=== PATIENT | female | born 1955 | race Caucasian/White ===

== ENCOUNTER 2016-12-07 23:18 | Emergency (ER) | payer MEDICARE, MEDICAID ==
[~2016-12-07] VITALS: Ht 177.8 cm; Wt 95.0 kg
[~2016-12-07 23:18] MED LIST: CALC-721 PO; CYCL10TA9 PO; EPIN0.3P2 IJ; GABA800T2 PO; HYDR12.55 PO; PANT40TA2 PO; PROP20TA5 PO; TRAM50TA2 PO; protandim PO
[2016-12-07 23:27] VITALS: BP 156/97; PULSE 114; RESP 18; O2SAT 98
--- NOTE | 2016-12-08 00:29 | ED.REPORT ---
HPI-General Illness Date of Service Dec 08, 2016 ED Provider: Ethan Vallejo MD Patient is a 61 year old female with a history of hypertension, fibromyalgia, breast cancer s/p bilateral mastectomy, and prior bladder suspension who presents to the ED complaining of urinary incontinence that began earlier this evening. The patient states that she currently has no control over her bladder and she had to change her clothing several times. For several months she has experienced abdominal pain with urination. The patient states that whenever she has to urinate she feels as if "everything is going to fall out". However, she has not actually noticed anything fall out of her body. Patient has a history of prior UTIs. The patient also has a burn to her right wrist, which she sustained while baking donuts yesterday. Patient reports associated redness and pain of her burn. Nursing Notes Stated Complaint: INCONTINENCE, RT HAND BURN Chief Complaint: General Complaint Nursing Notes Reviewed: Yes Allergies: Coded Allergies: Sulfa (Sulfonamide Antibiotics) (Verified Allergy, Unknown, 06/29/14) Penicillins (Verified Adverse Reaction, Mild, MAKES EARS INFLAMMED, ) hydromorphone HCl (Verified Adverse Reaction, Mild, ITCH, 03/31/13) oxycodone HCl (Verified Adverse Reaction, Mild, ITCH, 07/05/12) Scheduled ([protandim]) 1 TAB PO DAILY Calcium Carbonate/Vitamin D3 (Calcium 500 + D Tablet) 1 Each Tablet 2 EACH PO DAILY Epinephrine (Epipen 2-Cleve) 0.3 Mg/0.3 Ml Auto.injct 0.3 MG IJ ONCE Gabapentin (Gabapentin) 800 Mg Tablet 1,200 MG PO TID Hydrochlorothiazide (Hydrochlorothiazide) 12.5 Mg Tablet 12.5 MG PO DAILY Pantoprazole DR (Protonix) 40 Mg Tablet 40 MG PO DAILY Propranolol HCl (Propranolol HCl) 20 Mg Tablet 20 MG PO TID Scheduled PRN Cyclobenzaprine (Cyclobenzaprine) 10 Mg Tablet 10 MG PO HS PRN PRN For Pain Tramadol (Tramadol) 50 Mg Tablet 50-100 MG PO HS PRN PRN For Pain General Time Seen by MD: 00:25 Chief Complaint Other (burn right hand, UTI symptoms) Hx Obtained From: Patient Arrived By: Walk-in Sudden in Onset?: No Onset Occurred: 1 - 4 hours ago Symptom Duration: Since onset Location: : Abdomen Quality: Painful Severity: Current: Mild Severity: Maximum: Moderate Recent Healthcare: No recent doctor visit, No recent hospitalization Similar Sx Previous: Yes Past Medical History Past Medical History Pituitary adenoma Fibro myalgia Hypertension breast cancer s/p bilateral mastectomy UTIs Past Surgical History bilateral mastectomy bladder suspension Reports: Hysterectomy Smoking History Never Smoker Ambulatory Status Independent Review of Systems Full Review of Systems GI: Reports: Abdominal pain, Denies: Vomiting Female: Reports: Incontinence, Urinary urgency Musculoskeletal: Reports: Extremity pain, Denies: Extremity swelling Complete sys rev & neg: except as marked. Physical Exam Vital Signs Vital Signs Date Time Temp Pulse Resp B/P Pulse Ox O2 Delivery O2 Flow Rate FiO2 12/07/16 23:27 36.4 114 18 156/97 98 Room Air Initial VS: Reviewed, Vital signs abnormal Skin: Warm, Dry, No cyanosis Neurologic: Alert, Oriented, Nonfocal Psychiatric: Mood/affect normal, Behavior normal, Normal thought content General/Constitutional: Awake, Alert, No acute distress Head / Eyes: Atraumatic, Normocephalic, PERRL ENT: Airway patent, Mucous membranes moist Neck: Supple, Full range of motion Respiratory / Chest: Breath sounds NL, Breath sounds = bilat, No respiratory distress, No rales, No rhonchi, No wheezing Cardiovascular: Heart rate NL, Regular rhythm, Heart sounds NL, No murmurs Abdomen: Soft, No guarding, No rebound Tenderness/Guarding/Rebound: Positive: Tender suprapubic Back: No midline vertebral tend, No CVA tenderness Upper Extremities Upper Extremity / MS: Neurologic intact, Vascular intact Wrist / Hand: Neurologic intact, Vascular intact patterned burn diagonally to the right volar wrist central blistering and with surrounding erythema in a linear rectangular pattern Lower Extremity / Pelvis / MS: Neurologic intact, Vascular intact Interpretation & Diagnostics Lab Results Interpretation Test 12/08/16 00:40 Urine Color Yellow (YELLOW) Urine Appearance Clear (CLEAR,HAZY) Urine pH 5.5 (5.0-8.0) Urine Specific [place] 1.030 (1.003-1.035) Urine Protein Negativemg/dL (NEG,TRACE) Urine Glucose (UA) Negativemg/dL (NEGATIVE) Urine Ketones Negativemg/dL (NEGATIVE) Urine Occult Blood Negative (NEGATIVE) Urine Nitrite Negative (NEGATIVE) Urine Bilirubin Negative (NEGATIVE) Urine Urobilinogen Normalmg/dL (NORMAL) Urine Leukocyte Esterase Small (NEGATIVE) Urine RBC 3-10/hpf (0-2) Urine WBC 11-50/hpf (0-5) Urine Epithelial Cells Many/hpf (NONE-MOD) Urine Crystals None seen (NONE SEEN) Urine Bacteria Few/hpf (NONE-FEW) Urine Hyaline Casts None/lpf (NONE) Urine Granular Casts None seen (NONE SEEN) Urine Waxy Casts None seen (NONE SEEN) Urine Red Blood Cell Casts None seen (NONE SEEN) Urine White Blood Cell Casts None seen (NONE SEEN) Urine Mucus Present (None Seen) Urine Trichomonas None seen (NONE SEEN) Urine Yeast None (NONE SEEN) Urinalysis Comment None Urine Culture Reflexed Indicated Lab Results Interpretation: Elevated wbc per hpf, culture pending. Re-Eval/Medical Decision Med Decision/Clinical Course 61-year-old female with urinary tract infection symptoms and new onset incontinence is found to have urinary tract infection. She will be treated with Macrobid and phenazopyridine. She will follow-up with her primary doctor. She also had a small second degree burn of the right volar wrist which was dressed. Source of Hx: Old records Time of Eval: 00:59 Re-Evaluation/Progress Note: Patient's burn was dressed. She was informed that she has a UTI. Patient understands and agrees with the plan to be discharged home. Discharge instructions and follow-up discussed. All questions were addressed. Return to the ED warnings given. Counseled Regarding: Diagnosis, Lab results, Need for follow-up, When/why to return to ED Discharge & Departure Primary Impression: UTI (urinary tract infection) Urinary tract infection type: acute cystitis Hematuria presence: without hematuria Qualified Code: N30.00 - Acute cystitis without hematuria Additional Impression: Burn of right wrist Encounter type: initial encounter Burn degree: second degree Qualified Code : T23.271A - Burn of second degree of right wrist, initial encounter Disposition: Home Discharge Condition All VS Reviewed: Yes Condition: Stable Patient Instructions: Partial Thickness Burn (ED), Urinary Tract Infection in Women (ED) Additional Instructions: Macrobid (nitrofurantoin) 100 mg by mouth twice a day for 10 days, #20 dispensed. Phenazopyridine (Azo or Uristat) 95 mg, 2 tablets 3 times a day as needed for bladder symptoms or painful urination. Your urine culture is pending. We will contact you if this is not an appropriate antibiotic. See regular doctor if you are not improving. Drink plenty of fluids. Daily dressing changes with bacitracin and a Band-Aid on the wound on your arm. Referrals: Maximilian Varela MD (PCP) Scribe Attestation Portions of this note were transcribed by Radha Goldstein. I, Dr. Vallejo personally performed the history, physical exam and medical decision-making; I reviewed and confirmed the accuracy of the information in the transcribed note. Signed by: Demetrio Triana, 12/08/2016 0059 copies to: Maximilian Varela MD, Howard L MD Dec 08, 2016 00:29 Radha Goldstein Dec 08, 2016 00:32
[2016-12-08 00:52] LABS: APPEARANCE,URINE CLEAR (CLEAR,HAZY); COLOR,URINE YELLOW (YELLOW); OCCULT BLOOD,URINE NEGATIVE (NEGATIVE); PH,URINE 5.5 (5.0-8.0); UROBILINOGEN,URINE NORMAL (NORMAL)
[2016-12-08] MEDS ORDERED: Phenazopyridine 97.5 mg Tablet PO ONE (00:55)
[2016-12-08] MEDS ORDERED: _Nitrofurantoin Macrocrystal 100 mg Capsule PO SCH (08:30)
== END 2016-12-08 01:27 | disposition home or self-care (01) ==
LOC: SED 23:18
DX: N30.00 Acute cystitis without hematuria (principal); T23.271A Burn of second degree of right wrist, initial encounter; X19.XXXA Contact with other heat and hot substances, initial encounter; Y93.G3 Activity, cooking and baking; Y99.8 Other external cause status; Y92.010 Kitchen of single-family (private) house as the place of occurrence of the external cause; I10 Essential (primary) hypertension; Z85.3 Personal history of malignant neoplasm of breast; Z87.448 Personal history of other diseases of urinary system; Z90.13 Acquired absence of bilateral breasts and nipples; Z88.5 Allergy status to narcotic agent; Z88.2 Allergy status to sulfonamides; Z88.0 Allergy status to penicillin